=== PATIENT | male | born 1960 | race Caucasian/White ===

== ENCOUNTER 2018-12-13 19:41 | Inpatient (IN) ==
[2018-12-13] MEDS ORDERED: VANCOMYCIN CONSULT ACTIVE PRN (23:20)
[2018-12-14] MEDS ORDERED: VANCOMYCIN HCL 1,500 MG in SODIUM CHLORIDE 0.9% 500 ML IV SCH
[2018-12-14 00:04] LABS: Basophils # (auto) 0.03 K/uL (0-0.2); Basophils % (auto) 0.2 %; Eosinophils # (auto) 0.12 K/uL (0-0.5); Eosinophils % (auto) 0.8 %; Hematocrit (blood only) 45.6 % (42-52); Hemoglobin 16.3 g/dL (14.0-18.0); Immature Granulocytes # (auto) 0.04 K/uL (0.00-0.02); Immature Granulocytes % (auto) 0.3 %; Lymphocytes # (auto) 3.02 K/uL (1.2-3.4); Lymphocytes % (auto) 19.3 %; Mean Corpuscular Hgb Conc 35.7 g/dL (32-36); Mean Corpuscular Volume 93.6 fL (80-100); Mean Platelet Volume 10.5 fL (7.4-10.4); Monocytes % (auto) 8.9 %; Neutrophils # (auto) 11.04 K/uL (1.4-6.5); Neutrophils % (auto) 70.5 %; Platelet Count 202 K/uL (130-400); Red Blood Count 4.87 M/uL (4.7-6.1); White Blood Count 15.65 K/uL (4.8-10.8)
[2018-12-14 00:15] LABS: Partial Thromboplastin Ratio 1.1; Partial Thromboplastin Time 30.2 Seconds (21.0-31.0); Prothrombin Time 10.4 Seconds (9.0-12.0)
--- NOTE | 2018-12-14 00:18 | History & Physical Report ---
Date of Service December 14, 2018 Assessment & Plan (1) Septic bursitis of elbow: 58-year-old male with a past medical history of COPD and tobacco use, 30+ pack years presents with septic bursitis of the left elbow. He is a transfer from [facility]. Patient's vital signs are stable, joint fluid from [facility] grew staph aureus, white count was 16 and the patient is afebrile. Patient is admitted for evaluation by orthopedic surgery. He received IV vancomycin and Zosyn at [facility]. RCRI score is 3.9%, no history of type 2 diabetes, hypertension, hyperlipidemia. No history of acute coronary syndrome. The patient's COPD and tobacco use puts him at high risk for operative procedure. He states that his functional status is good at baseline. He does not get short of breath with activity. He is able to walk up a flight of stairs without getting short of breath. Septic bursitis, left elbow Treating with IV vancomycin/ceftriaxone Obtain basic labs, EKG, chest x-ray Ortho consult, appreciate recommendations Keep patient n.p.o. COPD Continue Spiriva DVT prophylaxis SCDs CODE STATUS Full (2) COPD (chronic obstructive pulmonary disease): History of Present Illness Primary Care Provider: NO PCP 58-year-old male with a past medical history of COPD presents as a transfer fr [facility] with septic bursitis of the left elbow. Patient remarks that he awoke with left elbow swelling on 12/13/2018. He subsequently went to [facility] to be evaluated. Tap of the left elbow revealed clear fluid. The patient states that he was discharged home from the ED, but became concerned when the swelling increased and he had erythema extending distally. In addition, fluid cultures grew staph aureus. He denies any injury, but states that he has a chronic callus on his left elbow that can become irritated. He denies fevers or chills. He describes sharp pain with range of motion of the left elbow. 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 He denies osteoarthritis. Patient denies a past medical history of hypertension, hyperlipidemia, diabetes, chronic kidney disease, CHF. He denies history of angina or acute coronary syndrome. He states that he smokes 1 pack a day for the past 30 years. Review of systems General; no fevers, chills Chest; no chest pain, no shortness of breath, no palpitations, no lower extremity swelling Abdomen; no abdominal pain, no nausea/vomiting/diarrhea Allergies Allergy/AdvReac Type Severity Reaction Status Date / Time No Known Allergies Allergy Unverified 12/13/18 22:04 Home Medications Home Medications Medication Instructions Recorded Confirmed Type cephalexin BID 12/13/18 History tiotropium bromide [Spiriva with QPM 12/13/18 History HandiHaler] Past Med/Surg History Medical History Chronic obstructive pulmonary disease Surgical History S/P bilateral inguinal hernia repair S/P colonoscopy Social History Preferred Language: Senegalese Communication Ability: Effective Buttermaker Continuous Churn Required: No Beliefs That Will Affect Care: None marital status: Current Living Situation: Spouse Other Information That Helps Us Care for You: No Feels Safe at Home: Yes Safety Concerns: Feels Safe At This Time Smoking Status: Current every day smoker Tobacco Type: cigarettes Cigarettes Per Day: pack a day x 45 years Do You Dip or Chew Tobacco: No Hx Alcohol Use: Yes Alcohol type: hard liquor Hx Substance Use: No Review of Systems Review of Systems: All systems reviewed & are unremarkable except as noted in HPI & below Physical Exam Constitutional: WD/WN, vitals as above Eyes: PERRL, conjunctivae normal, anicteric sclerae ENMT: external ear and nose normal, oropharynx normal Neck: trachea midline, no thyromegaly Respiratory: normal respiratory effort, lungs clear to auscultation Cardiovascular: RRR, no murmur, no edema Gastrointestinal (Abdomen): normal bowel sounds, soft, nontender, no hepatosplenomegaly Musculoskeletal: Left elbowsignificant swelling, callus present, no exudates Skin: no rashes, warm and dry Erythema and warmth surrounding the left elbow and extending down left posterior and anterior forearm Neurologic: PERRL, EOMI, accommodation nl, no face palsy, no dysarthria Psychiatric: A+Ox3, euthymic affect Results & Data Vital Signs (Past 12 Hours) Vital Signs Temp Pulse Resp BP Pulse Ox 12/13/18 22:07 36.6 C 72 18 122/82 96 12/13/18 22:00 36.6 C 72 18 122/82 96 Code Status & VTE Plan Code Status Full code VTE Prophylaxis Plan VTE Prophylaxis will be ordered: Yes Supervising Physician Co-Signing Physician Notes Attending addendum: I have physically seen this patient, have supervised the medical residents activities, and agree with the H&P unless as otherwise noted. Assessment and Plan: Left elbow septic bursitis- Accepted in transfer from [facility]. Consult orthopedics, who already spoke with ED from [facility]. Vancomycin IV. N.p.o. for possible procedure. Remainder of orders and notations as noted.
[2018-12-14 00:24] LABS: Albumin Level 3.6 gm/dl (3.4-5.0); BUN Creatinine Ratio 10.3 (10-20); Calcium 9.3 mg/dl (8.5-10.1); Creatinine Clr Calc Pharmacy 78.5 ml/min; Est GFR (Non-African American) 93.2; Potassium 3.6 mmol/L (3.5-5.1)
[2018-12-14 00:26] LABS: Albumin Globulin Ratio 0.8 (0.9-2); Bilirubin,Total 0.8 mg/dl (0.2-1); Globulin 4.3 gm/dl (2.5-4.0); Total Protein 7.9 gm/dl (6.4-8.2)
[2018-12-14] MEDS ORDERED: ACETAMINOPHEN 65 ML IV SCH (00:30)
[2018-12-14] MEDS ORDERED: ACETAMINOPHEN 65 ML IV PRN (00:36)
[2018-12-14] MEDS ORDERED: SODIUM CHLORIDE 0.9% 1000ML 1,000 ML IV SCH (00:45)
[2018-12-14] MEDS: MoRPHine SULFATE 2 MG/ML CARP IV PRN (00:51)
[2018-12-14] MEDS: cefTRIAXone SODIUM 2,000 MG in DEXTROSE 5% 50 ML IV SCH (01:56)
--- NOTE | 2018-12-14 02:37 | Pharmacy Report ---
Pharmacy Abx Initial Consult - Date of Service December 14, 2018 - Pharmacy Dosing Scope Pharmacy is consulted to initiate vancomycin IV dosing therapy, order appropriate labs and adjust drug dose/frequency. - Objective Height: 5 ft 11 in Weight: 62.8 kg Vital Signs (Past 12hrs): Vital Signs Temp Pulse Resp BP Pulse Ox 12/14/18 00:00 36.9 C 73 16 117/74 95 12/13/18 22:07 36.6 C 72 18 122/82 96 12/13/18 22:00 36.6 C 72 18 122/82 96 Lab Results (24hrs): Laboratory Tests (24 Hours) 12/13/18 12/13/18 23:48 23:48 WBC 15.65 H Neut # (Auto) 11.04 H Creatinine 0.90 Est Cr Clr Drug Dosing 78.5 - Assessment & Plan Assessment 58 year old M transferred from [facility] for septic left elbow. Patient has a surgical consultation ordered. Patient was admitted to room ~2345 (on 12/13/18) and vanco 1500mg was ordered and started ~0011. It was approx 0100 when it was discovered that the pt had already received vano 1gm while at [facility] at 1824. I called the RN to have the vanco infusion stopped at 0115, therefore pt received approx 1560mg of vanco. Will use this as an approximate loading dose (~25mg/kg). Plan Vancomycin IV * Estimated PK Parameters: Vd 0.7 L/kg, Edd 0.070 hr-1, t1/2 9.9 hr * Loading dose (as mentioned above) will estimate ~1560mg * Maintenance dose: 1000 mg IV (15.9 mg/kg) every 12 hours * Goal trough level : 15 to 20 mcg/mL * Trough ordered for 12/15/18 just prior to 4th dose. Pharmacy will continue to follow and will adjust dose/frequency as necessary. Thank you.
--- NOTE | 2018-12-14 06:37 | XRay Report ---
XR chest 1V portable CLINICAL HISTORY: preop clearance, h/o COPD COMPARISON STUDY: No previous studies for comparison. FINDINGS: Lung volumes are at the upper limits of normal. There is no pneumothorax or pleural effusio n. There is no consolidation. There is no evidence for pulmonary edema. Cardiac size is normal. Media stinal contours are normal. There is no consolidation to suggest pneumonia. There is possible underly ing emphysema. IMPRESSION: 1. No acute cardiopulmonary findings. 2. Possible underlying emphysema. Electronically signed by: Joe Cox M.D. 12/14/2018 6:35 AM
[2018-12-14 07:26] LABS: Basophils # (auto) 0.05 K/uL (0-0.2); Basophils % (auto) 0.3 %; Eosinophils # (auto) 0.17 K/uL (0-0.5); Eosinophils % (auto) 1.1 %; Hematocrit (blood only) 43.3 % (42-52); Hemoglobin 15.4 g/dL (14.0-18.0); Immature Granulocytes # (auto) 0.05 K/uL (0.00-0.02); Immature Granulocytes % (auto) 0.3 %; Lymphocytes # (auto) 2.03 K/uL (1.2-3.4); Lymphocytes % (auto) 13.1 %; Mean Corpuscular Hgb Conc 35.6 g/dL (32-36); Mean Corpuscular Volume 93.9 fL (80-100); Mean Platelet Volume 9.8 fL (7.4-10.4); Monocytes # (auto) 1.42 K/uL (0.11-0.59); Monocytes % (auto) 9.2 %; Neutrophils # (auto) 11.78 K/uL (1.4-6.5); Platelet Count 203 K/uL (130-400); RDW Coefficient of Variation 14.1 % (11.5-14.5); Red Blood Count 4.61 M/uL (4.7-6.1)
[2018-12-14 07:54] LABS: BUN Creatinine Ratio 11.5 (10-20); Calcium 9.1 mg/dl (8.5-10.1); Est GFR (African American) 115.7; Est GFR (Non-African American) 99.9; Potassium 3.9 mmol/L (3.5-5.1)
[2018-12-14] MEDS: VANCOMYCIN HCL 1,000 MG in SODIUM CHLORIDE 0.9% 250 ML IV SCH ×2 (09:00→20:36)
[2018-12-14] MEDS: TIOTROPIUM BROMIDE 5 PUFF/90 MCG INH INH SCH (09:01)
--- NOTE | 2018-12-14 09:38 | Orthopedic Consultation ---
Date of Consultation December 14, 2018 Assessment & Plan (1) Septic bursitis of elbow: Continue to be NPO Continue IV ABX Pain control with IV meds prn Will relay info to Dr. Trammell He will see patient after he is finished with surgery later this afternoon. I, Dr. Trammell, saw and examined the patient and discussed the management with my PA. I reviewed my PAs note and agree with the documented findings and the plan of care I developed, with the noted changes below. We will continue to monitor the patient while in-house. The patient may eat today, but will again have nothing by mouth after midnight, except for meds with sips, for possible I&D if symptoms are not improving by tomorrow on IV antibiotics. The patient may also have tramadol for severe pain. History of Present Illness Reason for Consultation: Left elbow septic Bursitis Requesting Physician: Nathan Trammell MD Attending Physician: Deric Peck DO History of Present Illness This 58 yo was seen for consultation of left elbow septic bursitis that developed 12/12/18. Patient was initially seen at the ED at [facility] in [place], had the olecranon bursa aspirated and a clear/yellow tinged fluid was sent for culture. Patient states that he was discharged after the aspiration and sent home on oral ABX. The next day he noticed that redness and warmth had spread up and down his arm, and that the joint had become very stiff. Patient went back to [facility] and was transferred to [facility] for what he states is "emergency surgery." He has been NPO since 10 yesterday. Culture grew Staph Aureus. No sensitivity results. Currently treated with IV Vanco and Rocephin. He denies CP, SOB (out of ordinary; Chronic COPD), fever, chills, sweats, Numbness or tingling in Left upper extremity. Allergies Allergy/AdvReac Type Severity Reaction Status Date / Time No Known Allergies Allergy Unverified 12/13/18 22:04 Home Medications Home Medications Medication Instructions Recorded Confirmed Type cephalexin BID 12/13/18 History tiotropium bromide [Spiriva with QPM 12/13/18 History HandiHaler] Patient History Medical History Chronic obstructive pulmonary disease Social History Preferred Language: Spanish Communication Ability: Effective Brass Burnisher Required: No Beliefs That Will Affect Care: None marital status: Current Living Situation: Spouse Other Information That Helps Us Care for You: No Feels Safe at Home: Yes Safety Concerns: Feels Safe At This Time Smoking Status: Current every day smoker Tobacco Type: cigarettes Cigarettes Per Day: pack a day Hx Alcohol Use: Yes Alcohol type: hard liquor Hx Substance Use: No Review of Systems Review of Systems: All systems reviewed & are unremarkable except as noted in HPI & below Physical Exam Physical Exam: Left upper extremity: Able to reach terminal extension at elbow but is 15 short of terminal flexion. NV intact. Full wrist and shoulder ROM. Mildly fluctuant olecranon bursa with edema, erythema, warmth and TTP with central scabbing At the tip of the olecranon. Erythematous area measures 11 cm x 10 cm. Also there is surrounding cellulitis measuring 32 cm x 20 cm over volar surface of arm extending medially and lateally from axilla to mid forearm. 1+ edema with blanching. No open skin areas or discharge noted. Periph pulses easily palpable. Cap refill < 2 seconds. Results & Data Vital Signs (Past 12 Hours) Vital Signs Temp Pulse Pulse Resp BP Pulse Ox 12/14/18 07:55 37.2 C 78 20 120/70 95 12/14/18 00:00 36.9 C 73 16 117/74 95 12/13/18 22:07 36.6 C 72 18 122/82 96 12/13/18 22:00 36.6 C 72 18 122/82 96 Laboratory Results 12/14/18 12/14/18 12/13/18 Range/Units 07:03 07:03 23:48 WBC 15.50 H (4.8-10.8) K/uL RBC 4.61 L (4.7-6.1) M/uL Hgb 15.4 (14.0-18.0) g/dL Hct 43.3 (42-52) % MCV 93.9 (80-100) fL MCH 33.4 (25-34) pg MCHC 35.6 (32-36) g/dL RDW Std Deviation 48.0 H (36.4-46.3) fL RDW Coeff of Evie 14.1 (11.5-14.5) % Plt Count 203 (130-400) K/uL MPV 9.8 (7.4-10.4) fL Immature Gran % (Auto) 0.3 % Neut % (Auto) 76.0 % Lymph % (Auto) 13.1 % [place] % (Auto) 9.2 % Eos % (Auto) 1.1 % Baso % (Auto) 0.3 % Immature Gran # (Auto) 0.05 H (0.00-0.02) K/uL Neut # (Auto) 11.78 H (1.4-6.5) K/uL Lymph # (Auto) 2.03 (1.2-3.4) K/uL [place] # (Auto) 1.42 H (0.11-0.59) K/uL Eos # (Auto) 0.17 (0-0.5) K/uL Baso # (Auto) 0.05 (0-0.2) K/uL PT (9.0-12.0) Seconds INR (0.9-1.1) APTT (21.0-31.0) Seconds PTT Ratio Sodium 139 (136-145) mmol/L Potassium 3.9 (3.5-5.1) mmol/L Chloride 108 H (98-107) mmol/L Carbon Dioxide 23 (21-32) mmol/L Anion Gap 8.0 (3-11) BUN 9 (7-18) mg/dl Creatinine 0.76 (0.6-1.4) mg/dl Est Cr Clr Drug Dosing 93.0 ml/min Est GFR ( Amer) 115.7 Est GFR (Non-Af Amer) 99.9 BUN/Creatinine Ratio 11.5 (10-20) Glucose 87 (70-99) mg/dl Lactate (0.4-2.0) mmol/L Calcium 9.1 (8.5-10.1) mg/dl Total Bilirubin (0.2-1) mg/dl AST (15-37) U/L ALT (12-78) U/L Alkaline Phosphatase (45-117) U/L Total Protein (6.4-8.2) gm/dl Albumin (3.4-5.0) gm/dl Globulin (2.5-4.0) gm/dl Albumin/Globulin Ratio (0.9-2) Hepatitis C Ab Screen Neg (Neg) 12/13/18 12/13/18 12/13/18 Range/Units 23:48 23:48 23:48 WBC (4.8-10.8) K/uL RBC (4.7-6.1) M/uL Hgb (14.0-18.0) g/dL Hct (42-52) % MCV (80-100) fL MCH (25-34) pg MCHC (32-36) g/dL RDW Std Deviation (36.4-46.3) fL RDW Coeff of Evie (11.5-14.5) % Plt Count (130-400) K/uL MPV (7.4-10.4) fL Immature Gran % (Auto) % Neut % (Auto) % Lymph % (Auto) % [place] % (Auto) % Eos % (Auto) % Baso % (Auto) % Immature Gran # (Auto) (0.00-0.02) K/uL Neut # (Auto) (1.4-6.5) K/uL Lymph # (Auto) (1.2-3.4) K/uL [place] # (Auto) (0.11-0.59) K/uL Eos # (Auto) (0-0.5) K/uL Baso # (Auto) (0-0.2) K/uL PT 10.4 (9.0-12.0) Seconds INR 1.0 (0.9-1.1) APTT 30.2 (21.0-31.0) Seconds PTT Ratio 1.1 Sodium 136 (136-145) mmol/L Potassium 3.6 (3.5-5.1) mmol/L Chloride 104 (98-107) mmol/L Carbon Dioxide 25 (21-32) mmol/L Anion Gap 7.0 (3-11) BUN 9 (7-18) mg/dl Creatinine 0.90 (0.6-1.4) mg/dl Est Cr Clr Drug Dosing 78.5 ml/min Est GFR ( Amer) 108.0 Est GFR (Non-Af Amer) 93.2 BUN/Creatinine Ratio 10.3 (10-20) Glucose 95 (70-99) mg/dl Lactate 0.8 (0.4-2.0) mmol/L Calcium 9.3 (8.5-10.1) mg/dl Total Bilirubin 0.8 (0.2-1) mg/dl AST 8 L (15-37) U/L ALT 15 (12-78) U/L Alkaline Phosphatase 129 H (45-117) U/L Total Protein 7.9 (6.4-8.2) gm/dl Albumin 3.6 (3.4-5.0) gm/dl Globulin 4.3 H (2.5-4.0) gm/dl Albumin/Globulin Ratio 0.8 L (0.9-2) Hepatitis C Ab Screen (Neg) 12/13/18 Range/Units 23:48 WBC 15.65 H (4.8-10.8) K/uL RBC 4.87 (4.7-6.1) M/uL Hgb 16.3 (14.0-18.0) g/dL Hct 45.6 (42-52) % MCV 93.6 (80-100) fL MCH 33.5 (25-34) pg MCHC 35.7 (32-36) g/dL RDW Std Deviation 48.0 H (36.4-46.3) fL RDW Coeff of Evie 14.0 (11.5-14.5) % Plt Count 202 (130-400) K/uL MPV 10.5 H (7.4-10.4) fL Immature Gran % (Auto) 0.3 % Neut % (Auto) 70.5 % Lymph % (Auto) 19.3 % [place] % (Auto) 8.9 % Eos % (Auto) 0.8 % Baso % (Auto) 0.2 % Immature Gran # (Auto) 0.04 H (0.00-0.02) K/uL Neut # (Auto) 11.04 H (1.4-6.5) K/uL Lymph # (Auto) 3.02 (1.2-3.4) K/uL [place] # (Auto) 1.40 H (0.11-0.59) K/uL Eos # (Auto) 0.12 (0-0.5) K/uL Baso # (Auto) 0.03 (0-0.2) K/uL PT (9.0-12.0) Seconds INR (0.9-1.1) APTT (21.0-31.0) Seconds PTT Ratio Sodium (136-145) mmol/L Potassium (3.5-5.1) mmol/L Chloride (98-107) mmol/L Carbon Dioxide (21-32) mmol/L Anion Gap (3-11) BUN (7-18) mg/dl Creatinine (0.6-1.4) mg/dl Est Cr Clr Drug Dosing ml/min Est GFR ( Amer) Est GFR (Non-Af Amer) BUN/Creatinine Ratio (10-20) Glucose (70-99) mg/dl Lactate (0.4-2.0) mmol/L Calcium (8.5-10.1) mg/dl Total Bilirubin (0.2-1) mg/dl AST (15-37) U/L ALT (12-78) U/L Alkaline Phosphatase (45-117) U/L Total Protein (6.4-8.2) gm/dl Albumin (3.4-5.0) gm/dl Globulin (2.5-4.0) gm/dl Albumin/Globulin Ratio (0.9-2) Hepatitis C Ab Screen (Neg)
[2018-12-14] MEDS ORDERED: VANCOMYCIN HCL 1,000 MG in SODIUM CHLORIDE 0.9% 250 ML IV SCH (12:00)
--- NOTE | 2018-12-14 13:49 | Hospitalist Progress Note ---
Date of Service December 14, 2018 Assessment & Plan (1) Septic bursitis of elbow: - Per culture from [facility] his joint fluid grew S. aureus - called [facility] Dangelo on 12/14 who states it is resistant to oxacillin (MRSA) - planning on faxing sensitivities - Will place isolation precautions - Will continue to cover with Rocephin IV and Vancomycin pending surgical cultures as well as to make sure no additional organisms grow - Maintain pain regimen - Orthopedics consulted - appreciate surgical input Present on Admission?: Yes (2) COPD (chronic obstructive pulmonary disease): - STABLE - Denies recent exacerbations - Continue Tiotropium bromide daily Present on Admission?: Yes (3) DVT prophylaxis: - SCDs/Ambulation Disposition: Pending possible surgical intervention Subjective Patient reports doing well. Denies fever/chills. Mild reduction in erythema of arm. Some limitations with ROM due to swelling. No openings in the skin or obvious drainage. Called [facility] D[facility] who reports BCx with NGTD and sensitivities suggests MRSA. They are to fax the report over. Awaiting to determine if surgical intervention is necessary Review of Systems Constitutional: no fever and no chills Ear, Nose, Mouth, Throat: no sore throat and no dysphagia Respiratory: no cough, no dyspnea and no wheezing Cardiovascular: no chest pain, no palpitations and no edema Gastrointestinal: no abdominal pain, no nausea, no vomiting, no constipation and no diarrhea/loose stools Genitourinary: no dysuria Musculoskeletal: + joint pain (L elbow - mild) Integumentary: + erythema Physical Exam Constitutional: WD/WN, vitals as above + thin; no acute distress and not ill appearing Eyes: + anicteric sclerae ENMT: Ears: no hearing impairment Neck: normal visual inspection and trachea midline Respiratory: normal respiratory effort, lungs clear to auscultation Cardiovascular: RRR, no murmur, no edema Gastrointestinal (Abdomen): Inspection/Auscultation: normal bowel sounds Percussion/Palpation: abdomen soft; abdomen nontender Musculoskeletal: Head/Neck/Chest: normocephalic and head atraumatic Extremities: no cyanosis and no clubbing Skin: erythema and edema of the L elbow with extension of erythema nearly to axilla and down into forearm; slight reduction of erythema in comparison to line drawn Neurologic: moves all extremities Psychiatric: A+Ox3, euthymic affect Results & Data Vital Signs (Past 12 Hours) Vital Signs Temp Pulse Resp BP Pulse Ox 12/14/18 11:38 37.4 C 80 22 118/72 95 12/14/18 07:55 37.2 C 78 20 120/70 95
[2018-12-14] MEDS: TRAMADOL HCL 50 MG TABLET PO PRN ×2 (14:18→22:10)
--- NOTE | 2018-12-14 14:23 | Anesthesiology Consultation ---
Date of Service December 14, 2018 Assessment & Plan Chart Review Chart Review: Acceptable Risk for Surgery and Patient NOT seen in Pre Admission Testing Consults Requested none ASA [id number] Proposed Anesthesia Anesthesia Type: General Risk / Benefits Reviewed With: PT / POA / Parent / Guardian, Accepts Plan and Informed Consent Obtained History Surgery Operation Date: 12/15/18 08:40 Proposed Procedures p Left Elbow Incision and Drainage Bursa - Nathan Praveena Trammell MD Height/Weight Height: 1.8 m Weight: 62.8 kg Allergies Allergy/AdvReac Type Severity Reaction Status Date / Time No Known Allergies Allergy Unverified 12/13/18 22:04 Medications Home Medications Medication Instructions Recorded Confirmed Last Taken cephalexin BID 12/13/18 12/13/18 09:00 tiotropium bromide [Spiriva with QPM 12/13/18 12/12/18 21:00 HandiHaler] Active Medications Generic Name Dose Route Start Last Admin Trade Name Freq PRN Reason Stop Dose Admin Ceftriaxone Sodium 2,000 mg/ 70 mls @ 100 mls/hr 12/14/18 02:00 12/15/18 03:35 Dextrose IV 01/25/19 01:59 Infused Q24H PRATIBHA Infusion Protocol Vancomycin HCl 1,000 mg/ 270 mls @ 125 mls/hr 12/14/18 09:00 12/15/18 09:14 Sodium Chloride IV 01/25/19 08:59 125 mls/hr Q12 PRATIBHA Administration Morphine Sulfate 2 mg 12/14/18 00:18 12/14/18 00:51 Morphine Sulfate IV 12/28/18 00:17 2 mg Q4H PRN Administration Pain Tiotropium Elnora 1 puffs 12/14/18 09:00 12/15/18 09:16 Spiriva INH 01/13/19 08:59 1 puffs QAM PRATIBHA Administration Tramadol HCl 50 mg 12/14/18 12:15 12/14/18 22:10 Ultram PO 01/13/19 12:14 50 mg Q4H PRN Administration Pain NPO Date Last Intake of Fluids: 12/14/18 Time Last Intake of Fluids: 22:00 Date Last Intake of Solids: 12/14/18 Time Last Intake of Solids: 20:30 Past Medical History Medical History Chronic obstructive pulmonary disease Denies h/o hospitalization or intubation due to COPD Has an albuterol to use prn but never had to use it Exercise / Class Metabolic Activity II 4-5 Yardwork/Stairs/Walk up hill Past Surgical History Surgical History S/P bilateral inguinal hernia repair S/P colonoscopy Past Anesthesia History No Hx of Anesthesia Complications and No Family Hx of Anesthesia Complications History of PONV No Hx of PONV and No Hx of Motion Sickness Social History Smoking Status: Current every day smoker tobacco type: cigarettes Smoking cigarettes per day: pack a day x 45 years Do You Dip or Chew Tobacco: No Hx Alcohol Use: Yes Alcohol type: hard liquor alcohol intake frequency: a few times a week Alcohol Intake Frequency Comment: once a week Hx Substance Use: No substance use type: does not use Review of Systems Respiratory: + cough (Chronic coughs); no dyspnea Cardiovascular: no chest pain and no dyspnea on exertion Gastrointestinal: no heartburn, no nausea and no vomiting Physical Exam Vital Signs Last Vital Signs Temp 36.8 C 12/15/18 07:51 Pulse 65 12/15/18 07:51 Resp 16 12/15/18 07:51 BP 133/80 12/15/18 07:51 Pulse Ox 95 12/15/18 07:51 ENMT Mouth: + poor dentition (Multiple missing teeth); no TMJ abnormality and no TMJ clicking Thyromental Distance: > or= 3.5 Finger Breadths Mallampati Class: II Neck normal visual inspection and + facial hair; neck extension not limited Respiratory Auscultation: lungs clear to auscultation bilaterally Cardiovascular Rate/Rhythm: regular rate and regular rhythm Musculoskeletal Spine: normal cervical ROM and no pain with cervical ROM Psychiatric Orientation: alert and oriented x 3 Testing Laboratory Results 12/14/18 07:03 12/14/18 07:03 12/13/18 23:48 PT 10.4 INR 1.0 APTT 30.2 Electrocardiogram Date: 12/13/18 Findings: + NSR @ (73 bpm) Normal sinus rhythm Possible Left atrial enlargement Left ventricular hypertrophy Abnormal ECG No previous ECGs available Chest X-Ray Date: 12/13/18 Findings: + NAD FINDINGS: Lung volumes are at the upper limits of normal. There is no pneumothorax or pleural effusion. There is no consolidation. There is no evidence for pulmonary edema. Cardiac size is normal. Mediastinal contours are normal. There is no consolidation to suggest pneumonia. There is possible underlying emphysema. IMPRESSION: 1. No acute cardiopulmonary findings. 2. Possible underlying emphysema.
[2018-12-15] MEDS: cefTRIAXone SODIUM 2,000 MG in DEXTROSE 5% 50 ML IV SCH (02:53)
--- NOTE | 2018-12-15 07:50 | Orthopedic Progress Note ---
Date of Service December 15, 2018 Assessment & Plan (1) Septic bursitis of elbow: Continue to be NPO, except for meds with sips. Continue IV ABX. Pain control Plan I&D this am. Risks and benifits of the procedure as well as alternatives were discussed with the patient. He wished to proceed with surgery and the informed consent was signed. Subjective No change Physical Exam Physical Exam: LUE: NV Intact. Continued upper and lower arm cellulitis with no change in intensity or size. Fluctuant area over olecranon bursa unchanged in size, large egg. No drainage. Healing scab at the tip. ROM unchanged. Results & Data Vital Signs (Past 12 Hours) Vital Signs Temp Pulse Resp BP Pulse Ox 12/14/18 22:57 36.8 C 68 14 127/73 93 Laboratory Results Received sensitivities from EBON[facility] Dangelo after phone call. Appears the S. aureus is only resistant to penicillin and sensitive to oxacillin. Sensitive to - Cipro/Levofloxacin, Clinda, Erythromycin, Genamicin, Rifampin, Tetracycline, Linezolid, Bactrim, Vanc
[2018-12-15] MEDS ORDERED: VANCOMYCIN TROUGH ONE ×2 (08:30→11:30)
[2018-12-15] MEDS: VANCOMYCIN HCL 1,000 MG in SODIUM CHLORIDE 0.9% 250 ML IV SCH (09:14)
[2018-12-15 09:15] LABS: Creatinine Clr Calc Pharmacy 96.8 ml/min; Est GFR (African American) 117.7; Est GFR (Non-African American) 101.5
[2018-12-15] MEDS: TIOTROPIUM BROMIDE 5 PUFF/90 MCG INH INH SCH (09:16)
[2018-12-15] MEDS ORDERED: PROMETHAZINE HCL 12.5 MG in SODIUM CHLORIDE 0.9% 50 ML IV PRN (09:39)
[2018-12-15] MEDS ORDERED: ONDANSETRON INJ 2 MG/ML 2 ML VIAL IV PRN ×2 (09:39→13:22)
[2018-12-15] MEDS ORDERED: ATROPINE SULFATE 0.1 MG/ML 10ML SYR IV PRN (09:39)
[2018-12-15] MEDS ORDERED: PHENYLEPHRINE 100MCG/ML 5ML SYR IV PRN (09:39)
[2018-12-15] MEDS ORDERED: ePHEDrine sulfate 50 MG/ML AMP IV PRN (09:39)
[2018-12-15] MEDS ORDERED: MIDAZOLAM HCL 1 MG/ML 2ML VIAL ONE (10:27)
[2018-12-15] MEDS ORDERED: ONDANSETRON INJ 2 MG/ML 2 ML VIAL ONE (10:28)
[2018-12-15] MEDS ORDERED: LIDOCAINE HCL 2% 2 ML VIAL/AMP(20MG/ML) INFIL ONE (10:28)
[2018-12-15] MEDS ORDERED: fentaNYL citrate 100 MCG/2 ML VIAL ONE ×2 (10:28→12:16)
[2018-12-15] MEDS ORDERED: PROPOFOL IV EMULSION 10 MG/ML 20 ML VIAL IV ONE (10:28)
[2018-12-15] MEDS ORDERED: BUPIVACAINE 0.5 % 5 MG/1 ML MPF 30ML VIAL ONE (10:46)
[2018-12-15] MEDS ORDERED: LIDOCAINE/EPINEPHRINE 1% 20 ML VIAL ONE (10:46)
[2018-12-15] MEDS ORDERED: ePHEDrine sulfate 50 MG/ML SYR ONE (11:21)
--- NOTE | 2018-12-15 12:00 | Post Operative Brief Note ---
Immediate Post Op Note v1 Date of Surgery December 15, 2018 Pre & Post Diagnosis Operation Date: 12/15/18 08:40 Pre-Op Diagnosis: SEPTIC BURSITIS OF LEFT Elbow Post-Op Diagnosis: SEPTIC BURSITIS OF LEFT Elbow Procedure Operation Date: 12/15/18 08:40 Actual Procedures p Left Elbow Bursa Incision and Drainage (Left) - Nathan Trammell MD Surgeon Nathan Trammell MD Registered Nurse Post Partum n/a Estimated Blood Loss 12 Findings Consistent with Post-Op Diagnosis Fluids 700 cc Specimens L elbow bursa aspirate C&S & Crystals L elbow bursa path Drains Alex-Carvalho Drain Anesthesia Type General Complications none
--- NOTE | 2018-12-15 12:02 | Operative Report ---
Post Operative Report Pre & Post Diagnosis Operation Date: 12/15/18 08:40 Pre-Op Diagnosis: SEPTIC BURSITIS OF LEFT ELBOW Post-Op Diagnosis: SEPTIC BURSITIS OF LEFT ELBOW Procedure Operation Date: 12/15/18 08:40 Actual Procedures p Left Elbow Bursa Incision and Drainage (Left) - Nathan Trammell MD Surgeon Nathan Trammell MD Cell Inspector n/a Estimated Blood Loss 12 Findings See Below There was purulent drainage once entering the fluctuant area surrounding the olecranon bursa. There was significant devitalized and necrotic soft tissue. In some areas thick and may have been chronic. Fluids 700 CC Specimens L ELBOW BURSA C&S, CRYSTALS L ELBOW BURSA PATH Drains GUY Anesthesia Type General Complications none Indications The patient had a left elbow infected bursitis surgery that has not responded to IV abtibiotics. I recommended surgical I&D. The risks and benifits of surgery as well as the alternatives were discussed. The risks of surgery include but not limited to: bleeding, infection, re-operation, damage to nerves and arteries, continued pain and DVT. The patient understands all of these instructions and explanations, all of their questions have been satisfactorily a ddressed. The patient has elected to proceed with surgery and the informed consent was signed. Description of Procedure The patient was taken to the Operating Room and placed in the supine position on the operating table. After general anesthetic was administered a multidisciplinary time-out was performed identifying my initials on the left arm as the correct and operative limb. The patient was recieving his scheduled dose of IV Vancomycin. The left arm was prepped and draped in the usual Orthopaedic sterile fashion. The planned incision, 7 cm long, posterioly and curving around the radial aspect of the olecranon was marked. The planned incision was injected with a 50:50 mixture of 1% lidocaine and 0.5 % Marcaine with epi for a total of 6cc. There was devitalized, necrotic soft tissue and there appeared to be purulent drainage which was cultured. The non-viable soft tissue down and to the triceps and upto the olecranon tip was removed with a combination of sharp dissection with the scalpel, curette, and rongeur. The wound was copiously irrigated with 3L normal saline. Soft tissue cultures were also obtained and sent to pathology. Following irrigation and debridement there was healthy viable red beefy tissue that was bleeding. A small GUY drain was placed. The skin were closed with 0 & 2-0 Prolene. The wound was covered Xerofoam, 4 x 4's, ABDs, sterile cast padding, and an MOOKIE. The sponge and needle counts were correct. POST-OP: Patient will be re-admitted and continued on IV Vancomycin and Rocephin until seen by infectious disease. Sling is for comfort. I attest to the content of the Intraoperative Record and any orders documented therein. Any exceptions are noted below.
[2018-12-15] MEDS: fentaNYL citrate 100 MCG/2 ML VIAL IV PRN ×4 (12:17→12:32)
[2018-12-15] MEDS ORDERED: HYDROmorphone INJ 0.5 MG/0.5 ML SYR ONE (12:35)
[2018-12-15] MEDS: HYDROmorphone INJ 1 MG/ML SYRINGE IV PRN ×4 (12:36→12:51)
[2018-12-15] MEDS ORDERED: BISACODYL 10 MG SUPP PR PRN (13:22)
[2018-12-15] MEDS ORDERED: NALOXONE HCL 0.4 MG/1 ML VIAL/CARP IV PRN (13:22)
[2018-12-15] MEDS ORDERED: METOCLOPRAMIDE HCL INJ 5 MG/ML 2 ML VIAL IV PRN (13:22)
[2018-12-15] MEDS ORDERED: MAGNESIUM HYDROXIDE SUSP 30 ML UDC PO PRN (13:22)
--- NOTE | 2018-12-15 14:35 | Anesthesiology Progress Note ---
Date of Service December 15, 2018 Anesthesia Post Procedure Vital Signs Vital Signs: Temp Pulse Pulse Pulse Resp BP Pulse Ox 12/15/18 13:50 36.7 C 69 16 120/78 93 12/15/18 13:26 37.1 C 75 18 114/69 96 12/15/18 13:00 36.4 C L 72 18 108/60 94 12/15/18 12:50 70 18 118/65 94 12/15/18 12:40 74 18 120/65 94 12/15/18 12:30 81 18 122/61 100 12/15/18 12:20 80 18 126/74 99 12/15/18 12:11 36.6 C 75 18 123/74 99 12/15/18 07:51 36.8 C 65 16 133/80 95 12/14/18 22:57 36.8 C 68 14 127/73 93 12/14/18 15:21 37.2 C 76 18 135/76 95 Pain Intensity Left Elbow: Pain Intensity: 5 Transfer of Care Handoff Completed per policy Notes Mental Status: alert / awake / arousable Patient Amnestic to Procedure: Yes Nausea / Vomiting: adequately controlled Pain: adequately controlled Airway Patency, RR, SpO2: stable & adequate BP & HR: stable & adequate Hydration State: stable & adequate Anesthetic Complications: no major complications apparent
[2018-12-15] MEDS: NICOTINE 21 MG/24 HR TDSY TD SCH (14:43)
--- NOTE | 2018-12-15 14:59 | Hospitalist Progress Note ---
Date of Service December 15, 2018 Assessment & Plan (1) Septic bursitis of elbow: - Per culture from [facility] his joint fluid grew MRSA - Will continue to cover with Rocephin IV and Vancomycin pending surgical cultures as well as to make sure no additional organisms grow - Maintain pain regimen - Orthopedics consulted - post I&D 12/15 - consult ID (2) COPD (chronic obstructive pulmonary disease): - STABLE - Denies recent exacerbations - Continue Tiotropium bromide daily (3) DVT prophylaxis: - SCDs/Ambulation (4) Tobacco abuse: nicotine patch tobacco cessation counseling Subjective Mr. Law is a bit drowsy from surgery but awakens and is oriented. He denies complaints. His is bedside and I spent time answering her questions. Review of Systems Review of Systems: All systems reviewed & are unremarkable except as noted in HPI & below Physical Exam Physical Exam: General: no distress Eyes: normal inspection, PERLL Respiratory: chest non tender, clear to auscultation, normal breath sounds, no respiratory distress, no accessory muscle use Cardiac: regular rate and rhythm, no rub or gallop, no murmur, no edema, no jvd GI/: active bowel sounds, no abd pain or tenderness, soft, non distended Extremities: normal range of motion, normal strength, non tender Neuro/Psych: alert and oriented x 3, normal mood and affect Skin: normal color, dry Results & Data Vital Signs (Past 12 Hours) Vital Signs Temp Pulse Pulse Resp BP Pulse Ox 12/15/18 14:20 36.6 C 67 16 111/70 95 12/15/18 13:50 36.7 C 69 16 120/78 93 12/15/18 13:26 37.1 C 75 18 114/69 96 12/15/18 13:00 36.4 C L 72 18 108/60 94 12/15/18 12:50 70 18 118/65 94 12/15/18 12:40 74 18 120/65 94 12/15/18 12:30 81 18 122/61 100 12/15/18 12:20 80 18 126/74 99 12/15/18 12:11 36.6 C 75 18 123/74 99 12/15/18 07:51 36.8 C 65 16 133/80 95
[2018-12-15] MEDS: MoRPHine SULFATE 2 MG/ML CARP IV PRN (15:31)
[2018-12-15] MEDS: TRAMADOL HCL 50 MG TABLET PO PRN ×2 (16:33→20:32)
--- NOTE | 2018-12-15 16:39 | Pharmacy Report ---
Pharmacy Abx Dose Short Note - Date of Service December 15, 2018 - Assessment & Plan Assessment 58 year old M receiving vancomycin for treatment of septic left elbow Day # 3 of antimicrobial therapy. Plan Vancomycin * Trough level of 7.1 mcg/mL is subtherapeutic * Even though trough was drawn prior to steady state, expected level to be a bit higher. * Will change to 1250 mg (20mg/kg) IV every 12 hours. * Goal trough level : 15 to 20 mcg/mL * Trough or random level ordered for: 12/16/18 @3702 Pharmacy will continue to follow and will adjust dose/frequency as necessary. Thank you.
[2018-12-15] MEDS: VANCOMYCIN HCL 1,250 MG in SODIUM CHLORIDE 0.9% 250 ML IV SCH (17:42)
[2018-12-15] MEDS: DOCUSATE SODIUM 100 MG CAP PO SCH (19:59)
[2018-12-16] MEDS: TRAMADOL HCL 50 MG TABLET PO PRN ×4 (01:41→22:10)
[2018-12-16] MEDS: cefTRIAXone SODIUM 2,000 MG in DEXTROSE 5% 50 ML IV SCH (01:41)
[2018-12-16] MEDS: VANCOMYCIN HCL 1,250 MG in SODIUM CHLORIDE 0.9% 250 ML IV SCH ×2 (05:52→18:22)
--- NOTE | 2018-12-16 07:09 | Infectious Disease Consult ---
Date of Consultation December 16, 2018 Assessment & Plan (1) Septic bursitis of elbow: continue IV abx for now, await OR culture result, may be negative. await final sensitivities. hopefully will be able to d/c on po abx x 21 days, would suggest doxy, if isolate is sensitive. History of Present Illness Attending Physician: Cisco Martinez MD pt transferred from [facility] due to left elbow septic bursitis. Initially seen there for sudden onset left elbow pain and redness, had aspirate, reportedly grew MRSA, d/c home, unclear if taking abx, had worsening pain, returned and was sent to [facility]. saw ortho and underwent I&D 12/15. tolerated well. arm in sling, OR dressing intact, min pain but well controlled. no f/c. now on ctx and vanco. OR cultures pending, gram stain negative. wbc 15, creat normal. denies cp, sob, cough, eating well. no abd pain, no n/v/d. Overall feeling better. 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 Beliefs That Will Affect Care: None marital status: Current Living Situation: Spouse Other Information That Helps Us Care for You: No Feels Safe at Home: Yes Safety Concerns: Feels Safe At This Time Smoking Status: Current every day smoker Tobacco Type: cigarettes Cigarettes Per Day: pack a day x 45 years Do You Dip or Chew Tobacco: No Hx Alcohol Use: Yes Alcohol type: hard liquor Hx Substance Use: No Review of Systems Review of Systems: All systems reviewed & are unremarkable except as noted in HPI & below Physical Exam Constitutional: WD/WN, vitals as above Eyes: PERRL, conjunctivae normal, anicteric sclerae ENMT: external ear and nose normal, oropharynx normal Neck: normal visual inspection Respiratory: normal respiratory effort, lungs clear to auscultation Cardiovascular: RRR, no murmur, no edema Gastrointestinal (Abdomen): normal bowel sounds, soft, nontender, no h epatosplenomegaly Musculoskeletal: no cyanosis or clubbing, extremities motor strength 5/5 Skin: no rashes, warm and dry Psychiatric: A+Ox3, euthymic affect Results & Data Vital Signs (Past 12 Hours) Vital Signs Temp Pulse Resp BP Pulse Ox 12/16/18 02:22 36.8 C 66 16 106/71 93 12/15/18 22:59 36.9 C 69 16 107/71 96 12/15/18 20:00 36.7 C 71 18 130/81 95 Laboratory Results Microbiology 12/15/18 Unknown Elbow,Left Gram Stain - Final
[2018-12-16 08:04] LABS: Creatinine Clr Calc Pharmacy 79.4 ml/min; Est GFR (African American) 108.5; Est GFR (Non-African American) 93.6
--- NOTE | 2018-12-16 08:16 | Orthopedic Progress Note ---
Date of Service December 16, 2018 Assessment & Plan (1) Septic bursitis of elbow: POD # 1 s/p I&D left elbow infected olecranon bursitis, doing as well as expected. Continue IV ABX per ID, appreciate ID input. Continue Pain control. Ice and elevate LUE. Sling for comfort. D/C GUY drain 12/16/18. Regular diet, precautionary NPO except sips after midnight for potential return to OR. Will check wound in am, if no concern will allow to eat tomorrow. Check C&S Continue care per primary service. Subjective Feeling better Physical Exam Physical Exam: LUE: NV intact. Dressing clean, dry, intact. Decreased erythema. Results & Data Vital Signs (Past 12 Hours) Vital Signs Temp Pulse Resp BP Pulse Ox 12/16/18 07:41 36.8 C 68 16 136/84 94 12/16/18 02:22 36.8 C 66 16 106/71 93 12/15/18 22:59 36.9 C 69 16 107/71 96 Laboratory Results 12/16/18 12/15/18 12/15/18 Range/Units 07:00 Unknown Unknown Creatinine 0.89 (0.6-1.4) mg/dl Est Cr Clr Drug Dosing 79.4 ml/min Est GFR ( Amer) 108.5 Est GFR (Non-Af Amer) 93.6 Synovial Crystals Pending Pending Vancomycin Trough (See Comment) mcg/ml 12/15/18 12/15/18 Range/Units 08:37 08:33 Creatinine 0.73 (0.6-1.4) mg/dl Est Cr Clr Drug Dosing 96.8 ml/min Est GFR ( Amer) 117.7 Est GFR (Non-Af Amer) 101.5 Synovial Crystals Vancomycin Trough 7.1 (See Comment) mcg/ml Gram stain: Rare WBC's. No organisms. Crystals: Pending. Pathology: Pending.
[2018-12-16] MEDS: MULTIVITAMIN TAB PO SCH (08:43)
[2018-12-16] MEDS: TIOTROPIUM BROMIDE 5 PUFF/90 MCG INH INH SCH (08:43)
[2018-12-16] MEDS: NICOTINE 21 MG/24 HR TDSY TD SCH (10:06)
[2018-12-16] MEDS: DOCUSATE SODIUM 100 MG CAP PO SCH ×2 (10:07→20:44)
--- NOTE | 2018-12-16 13:09 | Hospitalist Progress Note ---
Date of Service December 16, 2018 Assessment & Plan (1) Septic bursitis of elbow: - Per culture from [facility] his joint fluid grew MRSA - Will continue to cover with Rocephin IV and Vancomycin pending surgical cultures - Maintain pain regimen - Orthopedics consulted - post I&D 12/15 - consulted ID - patient will hopefully be able to go home with po doxycycline for 21 days pending sensitivities (2) COPD (chronic obstructive pulmonary disease): - STABLE - Denies recent exacerbations - Continue Tiotropium bromide daily (3) Tobacco abuse: nicotine patch smoking cessation education (4) DVT prophylaxis: ambulates frequently Subjective Feeling much better today, up and walking the halls. No complaints. Review of Systems Review of Systems: All systems reviewed & are unremarkable except as noted in HPI & below Physical Exam Physical Exam: General: no distress Eyes: normal inspection, PERLL Respiratory: chest non tender, clear to auscultation, normal breath sounds, no r espiratory distress, no accessory muscle use Cardiac: regular rate and rhythm, no rub or gallop, no murmur, no edema, no jvd GI/: active bowel sounds, no abd pain or tenderness, soft, non distended Extremities: normal range of motion, normal strength, non tender Neuro/Psych: alert and oriented x 3, normal mood and affect Skin: normal color, dry Results & Data Vital Signs (Past 12 Hours) Vital Signs Temp Pulse Resp BP Pulse Ox 12/16/18 07:41 36.8 C 68 16 136/84 94 12/16/18 02:22 36.8 C 66 16 106/71 93
[2018-12-16] MEDS ORDERED: VANCOMYCIN TROUGH ONE (17:30)
--- NOTE | 2018-12-16 18:41 | Pharmacy Report ---
Pharmacy Abx Dose Short Note - Date of Service December 16, 2018 - Assessment & Plan Assessment 58 year old M receiving VANCOMYCIN for treatment of septic left elbow Day # 4 of antimicrobial therapy. Plan Vancomycin * Trough level of 14.6 mcg/mL is slightly subtherapeutic; however trough was drawn prior to steady state * Continue dose of 1250 mg IV every 12 hours * Goal trough level: 15 to 20 mcg/mL * Awaiting culture sensitivities; patient likely to be switched to PO abx soon. Will follow and order trough accordingly. Pharmacy will continue to follow and will adjust dose/frequency as necessary. Thank you.
[2018-12-17] MEDS: cefTRIAXone SODIUM 2,000 MG in DEXTROSE 5% 50 ML IV SCH (02:03)
[2018-12-17] MEDS: VANCOMYCIN HCL 1,250 MG in SODIUM CHLORIDE 0.9% 250 ML IV SCH (05:42)
--- NOTE | 2018-12-17 06:58 | Orthopedic Progress Note ---
Date of Service December 17, 2018 Assessment & Plan (1) Septic bursitis of elbow: POD # 2 s/p I&D left elbow infected olecranon bursitis, doing as well as expected. Continue IV ABX per ID, appreciate ID input. Continue Pain control. Ice and elevate LUE. Sling for comfort. D/C GUY drain 12/16/18. Regular diet, NO need for return to OR, has been removed from add-on list. Check C&S Continue care per primary service. From an Ortho standpoint, patient could follow-up as an outpatient in 1 week. Call [phone] for appointment to check the incision and elbow. Will continue to follow while in hospital. Subjective Feeling good Physical Exam Physical Exam: LUE: Incision is clean, dry, intact. Significant decrease in swelling and erythema. NV intact. Improved ROM. Results & Data Vital Signs (Past 12 Hours) Vital Signs Temp Pulse Resp BP Pulse Ox 12/16/18 23:03 36.7 C 65 16 121/68 96 Laboratory Results C&S: No growth to date.
[2018-12-17 07:18] LABS: Creatinine Clr Calc Pharmacy 72.1 ml/min; Est GFR (African American) 97.4; Est GFR (Non-African American) 84.1
[2018-12-17] MEDS: DOCUSATE SODIUM 100 MG CAP PO SCH (07:55)
[2018-12-17] MEDS: MULTIVITAMIN TAB PO SCH (07:55)
[2018-12-17] MEDS: NICOTINE 21 MG/24 HR TDSY TD SCH (07:55)
[2018-12-17] MEDS: TIOTROPIUM BROMIDE 5 PUFF/90 MCG INH INH SCH (07:56)
[2018-12-17 14:58] LABS: Hemoglobin 14.2 g/dL (14.0-18.0); Mean Corpuscular Hgb Conc 34.6 g/dL (32-36); Mean Corpuscular Volume 94.3 fL (80-100); Mean Platelet Volume 10.2 fL (7.4-10.4); Platelet Count 222 K/uL (130-400); RDW Coefficient of Variation 13.7 % (11.5-14.5); RDW Standard Deviation 47.6 fL (36.4-46.3); Red Blood Count 4.35 M/uL (4.7-6.1); White Blood Count 8.03 K/uL (4.8-10.8)
--- NOTE | 2018-12-26 07:29 | Discharge Summary ---
Date of Service December 17, 2018 Admission HPI Per Admitting Provider 58-year-old male with a past medical history of COPD presents as a transfer from [facility] with septic bursitis of the left elbow. Patient remarks that he awoke with left elbow swelling on 12/13/2018. He subsequently went to [facility] to be evaluated. Tap of the left elbow revealed clear fluid. The patient states that he was discharged home from the ED, but became concerned when the swelling increased and he had erythema extending distally. In addition, fluid cultures grew staph aureus. He denies any injury, but states that he has a chronic callus on his left elbow that can become irritated. He denies fevers or chills. He describes sharp pain with range of motion of the left elbow. 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 He denies osteoarthritis. Patient denies a past medical history of hypertension, hyperlipidemia, diabetes, chronic kidney disease, CHF. He denies history of angina or acute coronary syndrome. He states that he smokes 1 pack a day for the past 30 years. Review of systems General; no fevers, chills Chest; no chest pain, no shortness of breath, no palpitations, no lower extremity swelling Abdomen; no abdominal pain, no nausea/vomiting/diarrhea Principal Diagnosis left olecranon bursitis Discharge Exam General: no distress Eyes: normal inspection, PERLL Respiratory: chest non tender, clear to auscultation, normal breath sounds, no respiratory distress, no accessory muscle use Cardiac: regular rate and rhythm, no rub or gallop, no murmur, no edema, no jvd GI/: active bowel sounds, no abd pain or tenderness, soft, non distended Extremities: normal range of motion, normal strength, non tender, small amoutn of erythema of left elbow Neuro/Psych: alert and oriented x 3, normal mood and affect Skin: normal color, dry Discharge Data Allergies Allergy/AdvReac Type Severity Reaction Status Date / Time No Known Allergies Allergy Unverified 12/13/18 22:04 Consultations 12/13/18 23:14 Consult Orthopedic Surgery Routine 12/14/18 12:18 Consult Health Information Management Routine 12/15/18 13:22 Consult Case Management - Discharge Planning Routine 12/15/18 14:33 Consult Infectious Diseases Routine 12/17/18 13:42 Consult Health Information Management Stat Procedures Performed Operation Date: 12/15/18 08:40 Actual Procedures p Left Elbow Bursa Incision and Drainage (Left) - Nathan Trammell MD Operation Date: 12/17/18 07:15 <No data on this case meets the specified criteria> Hospital Course (1) Septic bursitis of elbow: - Per culture from [facility] his joint fluid grew MRSA - Will continue to cover with Rocephin IV and Vancomycin pending surgical cultures - Maintain pain regimen - Orthopedics consulted - post I&D 12/15 - consulted ID - patient will hopefully be able to go home with po doxycycline for 21 days pending sensitivities On day of discharge, patient's culture from [facility] showed doxycyline sensitivitiy. WBC also decreased as well as erythema. All questions were answered. Patient's followup was scheduled and patient will continue on doxycycline as an outpatient. (2) COPD (chronic obstructive pulmonary disease): - STABLE - Denies recent exacerbations - Continue Tiotropium bromide daily (3) Tobacco abuse: nicotine patch smoking cessation education (4) DVT prophylaxis: ambulates frequently Total Time Total Time Spent Total Time Spent (In Minutes): 35 Total Time Includes: Examination of the Patient, Discharge Planning and Medication Reconciliation Discharge Plan Discharge Items Patient Disposition: Home - Self-Care Reason For Visit: SEPTIC BURSITIS OF LT ARM Discharge Diagnosis: Septic bursitis of left arm Discharge Goals: Decrease discomfort Activity: Resume your previous activity Non-emergency contact: Primary Care Provider Call non-emergency contact if: you have any medication questions Follow-up/Referrals: Nathan Trammell MD [Physician] - 12/24/18 3:30 pm (Please follow up with Dr. Trammell on December 24 at 3:30pm. Please call [phone] if you are unable to keep appt.) Rob Ballesteros MD [Primary Care Provider] - 12/18/18 2:00 pm (Please follow up with Dr. Ballesteros tomorrow, December 18 at 2pm.) PCP,NO [Physician] - Diet: Regular Addtl Provider Instructions: Orthopedic Recommendations: Pain control per medicine. Antibiotics per Infectious Disease. Daily dressing changes. Keep incision clean and dry. Ice and elevate LUE as needed for pain and swelling. Sling for comfort. From an Ortho standpoint, patient should follow-up as an outpatient in 1 week. Call [phone] for appointment to check the incision and elbow. Prescriptions: New nicotine [Nicoderm CQ] 21 mg/24 hr Patch 24 Hour 21 mg transdermal QAM Qty: 28 RF: 0 doxycycline hyclate 100 mg tablet,delayed release (DR/EC) 100 mg PO BID 21 Days Qty: 42 RF: 0 tramadol 50 mg tablet 50 mg PO BID PRN (Reason: pain) Qty: 8 RF: 0 doxycycline hyclate 100 mg tablet 100 mg PO BID 21 Days Qty: 42 RF: 0 Continued Spiriva with HandiHaler 18 mcg capsule, w/inhalation device QPM RF: 0 Discontinued cephalexin 500 mg capsule BID RF: 0 Stand-Alone Forms: [facility] AF83/Other Patient Handouts: Quit Smoking Plan Discharge Orders: Discharge Order (Routine); Ordered 12/17/18 Ordered By: Juan Owen Admission Data Admit Date/Time: 12/13/18 22:00 Attending Provider: Juan Owen Admit Provider: Nathan Trammell Primary Care Provider: Rob Ballesteros Other Providers: Deric Peck ; Nathan Trammell ; Ron Otto ; Juno Fields ; Shannan Navarrete ; Janae Deleon ; Kobe Brennan ; Shaun Grayson ; Zeus Araya ; Zeus Dao ; Bri Don ; Janae Kaur Service: Medical Other Interventions: Discharge Summary Assessment (RN) Last Done: 12/17/18 14:27 DC Date/Time DO NOT enter until pt leaves facility: 12/17/18 16:21
== END 2018-12-17 16:21 | disposition home or self-care (01) | DRG 502 ==
LOC: SUATTDRO 22:00 → 3W 22:00